=== PATIENT | female | born 1950 | race Caucasian/White ===

== ENCOUNTER 2020-04-11 02:41 | Emergency (ER) | payer MEDICARE, BC ==
[~2020-04-11] VITALS: Ht 157.5 cm; Wt 56.7 kg
[2020-04-11 05:24] LABS: Basophils # (auto) 0 10 ^3/uL (0-0.2); Basophils % (auto) 0.3 % (0.0-2.0); Eosinophils # (auto) 0.1 10 ^3/uL (0-0.8); Eosinophils % (auto) 0.9 % (0.0-7.0); Hematocrit 37.6 % (36.0-46.0); Hemoglobin 12.9 g/dL (12.2-16.2); Lymphocytes # (auto) 2.8 10 ^3/uL (0.4-5.4); Lymphocytes % (auto) 32.1 % (10.0-50.0); Mean Corpuscular Hemoglobin 31.6 pg (28.0-32.0); Mean Corpuscular Hgb Conc. 34.2 g/dL (32.0-36.0); Mean Corpuscular Volume 92.4 fL (80.0-100.0); Monocytes # (auto) 0.7 10 ^3/uL (0-1.3); Monocytes % (auto) 7.4 % (0.0-12.0); Neutrophils # (auto) 5.2 10 ^3/uL (1.6-8.6); Neutrophils % (auto) 59.3 % (37.0-80.0); Platelet Count (auto) 380 10^3/uL (140-450); Red Blood Cells 4.07 10^6/uL (4.0-5.20); White Blood Cell 8.8 10^3/uL (4.4-10.8)
[2020-04-11 05:31] LABS: INR 0.97 (0.9-1.15)
[2020-04-11 05:39] LABS: Albumin 3.7 g/dL (3.4-5.0); Anion Gap 10 (5-15); Blood Urea Nitrogen 17 mg/dL (7-18); Calcium 9.1 mg/dL (8.5-10.1); Carbon Dioxide 17 mmol/L (21-32); Chloride 113 mmol/L (98-107); Glucose 78 mg/dL (74-106); Potassium 3.6 mmol/L (3.5-5.1); Sodium 140 mmol/L (136-145)
[2020-04-11 05:47] LABS: Alanine Aminotransferase 16 U/L (13-56); Alkaline Phosphatase 71 U/L (45-117); Aspartate Aminotransferase 13 U/L (15-37); BUN/Creatinine Ratio 14.5; Bilirubin, Total 0.5 mg/dL (0.2-1.0); GFR African American 59 mL/min; GFR Non-African American 49 mL/min; Total Protein 7.7 g/dL (6.4-8.2)
[2020-04-11] MEDS ORDERED: LORazepam 2MG/ML-1ML VIAL IV ONE (06:00)
[2020-04-11 06:02] LABS: Urine Bacteria FEW /hpf (None Seen); Urine Blood Negative /uL (Negative); Urine Mucus FEW (None Seen); Urine Specific Gravity 1.012 (1.001-1.035); Urine WBC 72 /hpf (0 - 5)
[2020-04-11 07:07] VITALS: BP 138/58
[2020-04-11 09:13] LABS: Alcohol, Urine < 3.0 mg/dL (0-10); Amphetamine Screen, Urine NEGATIVE (NEGATIVE); Barbiturate Scree,Urine NEGATIVE (NEGATIVE); Benzodiazephine Screen, Urine NEGATIVE (NEGATIVE); Cannabinoid Screen, Urine POSITIVE (NEGATIVE); Cocaine Screen, Urine NEGATIVE (NEGATIVE); Opiate Scree,Urine NEGATIVE (NEGATIVE); Phencyclidine Screen, Urine NEGATIVE (NEGATIVE)
== END 2020-04-11 07:11 | disposition home or self-care (01) ==
LOC: ER 02:48
DX: F41.9 Anxiety disorder, unspecified (principal); Z88.2 Allergy status to sulfonamides
CPT/HCPCS: 36415; 71045; 80053; 80307; 81001; 83880; 84484; 85025; 85610; 85730; 93005; 96374; 99285; J2060

== ENCOUNTER 2020-06-15 14:23 | Inpatient (IN) | payer MEDICARE, BC ==
[~2020-06-15] VITALS: Ht 157.5 cm; Wt 60.0 kg
[2020-06-15] MEDS ORDERED: SODIUM CHLORIDE 0.9% 1,000 ML IVB ONE (15:00)
[2020-06-15 15:05] LABS: Basophils # (auto) 0 10 ^3/uL (0-0.2); Basophils % (auto) 0.3 % (0.0-2.0); Eosinophils # (auto) 0.1 10 ^3/uL (0-0.8); Hematocrit 38.2 % (36.0-46.0); Hemoglobin 13.4 g/dL (12.2-16.2); Lymphocytes % (auto) 36.5 % (10.0-50.0); Mean Corpuscular Hemoglobin 32.5 pg (28.0-32.0); Mean Corpuscular Hgb Conc. 35.1 g/dL (32.0-36.0); Mean Corpuscular Volume 92.8 fL (80.0-100.0); Monocytes # (auto) 0.7 10 ^3/uL (0-1.3); Neutrophils # (auto) 4.4 10 ^3/uL (1.6-8.6); Neutrophils % (auto) 54.2 % (37.0-80.0); Platelet Count (auto) 354 10^3/uL (140-450); Red Blood Cells 4.12 10^6/uL (4.0-5.20); Red Cell Distribution Width 14.2 % (11.8-14.3); White Blood Cell 8.1 10^3/uL (4.4-10.8)
[2020-06-15 15:23] LABS: Albumin 3.8 g/dL (3.4-5.0); Calcium 9.8 mg/dL (8.5-10.1); Magnesium 2.1 mg/dL (1.6-2.6); Potassium 3.3 mmol/L (3.5-5.1)
[2020-06-15 15:26] LABS: BUN/Creatinine Ratio 17.7; Bilirubin, Total 0.5 mg/dL (0.2-1.0); Total Protein 7.2 g/dL (6.4-8.2)
[2020-06-15 15:32] LABS: Partial Thromboplastin Time 25.1 sec (23.0-31.2)
[2020-06-15 18:10] LABS: Urine Bacteria NONE SEEN /hpf (None Seen); Urine Blood Negative /uL (Negative); Urine Mucus FEW (None Seen); Urine Specific Gravity 1.021 (1.001-1.035); Urine WBC 31 /hpf (0 - 5)
[2020-06-15] MEDS ORDERED: POTASSIUM CHL 20 Meq TABLET PO ONE (18:45)
[2020-06-15] MEDS ORDERED: cefTRIAXone 1GM/50ML D5W 50 ML IV ONE (18:45)
[2020-06-15] MEDS ORDERED: POTASSIUM EFFERVESENT TAB 25 MEQ PO ONE (20:00)
[2020-06-15] MEDS ORDERED: MORPHINE SULF INJ 2 MG/ML SYRINGE 1ML IV PRN ×2 (20:00)
[2020-06-15] MEDS ORDERED: NITROGLYCERIN 0.4 MG SL TAB SL PRN (20:00)
[2020-06-15] MEDS ORDERED: ONDANSETRON HCL 4 MG/2 ML VIAL IV PRN (20:00)
[2020-06-15] MEDS ORDERED: HYDROcodone-ACET 5/325MG TAB PO PRN (20:00)
[2020-06-15] MEDS ORDERED: ACETAMINOPHEN 500 MG TAB PO PRN (20:00)
[2020-06-15] MEDS: SODIUM CHLORIDE 0.9% 1,000 ML IV SCH (20:56)
[2020-06-15 23:30] VITALS: BP 130/70
[2020-06-16] MEDS: SODIUM CHLORIDE 0.9% 1,000 ML IV SCH ×2 (01:45→22:40)
[2020-06-16] MEDS ORDERED: RISP0.5T17 PO (01:59)
[2020-06-16] MEDS ORDERED: MULTTAB99 GT (02:00)
[2020-06-16] MEDS ORDERED: FLUO60TA7 PO (02:01)
[2020-06-16 05:00] VITALS: BP 145/79
[2020-06-16 08:15] VITALS: BP 129/77
[2020-06-16] MEDS: cefTRIAXone 1GM/50ML D5W 50 ML IV SCH (08:41)
[2020-06-16 09:00] VITALS: BP 129/77
[2020-06-16] MEDS: FLUoxetine HCL 20 MG CAP PO SCH (10:00)
[2020-06-16 12:59] VITALS: BP 133/67
[2020-06-16] MEDS: ALPRAZolam 0.25 MG TAB PO PRN (14:14)
[2020-06-16 17:00] VITALS: BP 138/79
[2020-06-16 22:00] VITALS: BP 102/66
[2020-06-17 05:00] VITALS: BP 123/71
[2020-06-17 06:27] LABS: Calcium 8.8 mg/dL (8.5-10.1); Potassium 3.8 mmol/L (3.5-5.1)
[2020-06-17] MEDS: ALPRAZolam 0.25 MG TAB PO PRN (08:43)
[2020-06-17] MEDS: cefTRIAXone 1GM/50ML D5W 50 ML IV SCH (08:43)
[2020-06-17 09:00] VITALS: BP 118/76
[2020-06-17] MEDS: FLUoxetine HCL 20 MG CAP PO SCH (09:53)
[2020-06-17] MEDS: SODIUM CHLORIDE 0.9% 1,000 ML IV SCH (12:00)
[2020-06-17 13:00] VITALS: BP 140/74
[2020-06-17 17:00] VITALS: BP 144/93
[2020-06-17 22:20] VITALS: BP 130/81
[2020-06-18] MEDS: SODIUM CHLORIDE 0.9% 1,000 ML IV SCH (01:23)
[2020-06-18 05:06] VITALS: BP 135/76
[2020-06-18 08:34] VITALS: BP 134/78
[2020-06-18] MEDS: cefTRIAXone 1GM/50ML D5W 50 ML IV SCH (09:35)
[2020-06-18] MEDS: FLUoxetine HCL 20 MG CAP PO SCH (09:36)
[2020-06-18] MEDS ORDERED: AMOX500T86 PO (10:24)
[2020-06-18] MEDS: ALPRAZolam 0.25 MG TAB PO PRN (10:48)
[2020-06-18 13:00] VITALS: BP 127/92
== END 2020-06-18 14:30 | disposition home or self-care (01) | DRG 689 ==
LOC: ER 14:23 → TELE 19:49 → TELE-WESTW 23:14
PROVIDERS: ADMIT Nurse Practitioner Acute Care; ATTEND Internal Medicine
DX: N30.00 Acute cystitis without hematuria (principal); N17.0 Acute kidney failure with tubular necrosis; R55 Syncope and collapse; I95.89 Other hypotension; E87.6 Hypokalemia; F41.9 Anxiety disorder, unspecified; F32.9 Major depressive disorder, single episode, unspecified; E86.0 Dehydration; F41.1 Generalized anxiety disorder; Z20.822 Contact with and (suspected) exposure to COVID-19; Z85.3 Personal history of malignant neoplasm of breast; Z90.710 Acquired absence of both cervix and uterus; N18.31 Chronic kidney disease, stage 3a
CPT/HCPCS: 36415; 70450; 71045; 80048; 80053; 81001; 83735; 85025; 85610; 85730; 87086; 87426; 93005; 96361; 96365; G0378; J0696

== ENCOUNTER 2022-01-31 23:34 | Emergency (ER) | payer MEDICARE, BC ==
[~2022-01-31] VITALS: Ht 157.5 cm; Wt 60.0 kg
[~2022-01-31 23:34] MED LIST: AMOX500T86 PO; FLUO60TA7 PO; MULTTAB99 GT; RISP0.5T17 PO
[2022-02-01 00:27] LABS: Basophils # (auto) 0 10 ^3/uL (0-0.2); Basophils % (auto) 0.4 % (0.0-2.0); Eosinophils # (auto) 0.1 10 ^3/uL (0-0.8); Eosinophils % (auto) 1.2 % (0.0-7.0); Hematocrit 39.3 % (36.0-46.0); Hemoglobin 13.1 g/dL (12.2-16.2); Lymphocytes # (auto) 2.5 10 ^3/uL (0.4-5.4); Lymphocytes % (auto) 30.1 % (10.0-50.0); Mean Corpuscular Hemoglobin 32.2 pg (28.0-32.0); Mean Corpuscular Hgb Conc. 33.4 g/dL (32.0-36.0); Mean Corpuscular Volume 96.3 fL (80.0-100.0); Monocytes # (auto) 0.7 10 ^3/uL (0-1.3); Monocytes % (auto) 8.2 % (0.0-12.0); Neutrophils % (auto) 60.1 % (37.0-80.0); Red Blood Cells 4.08 10^6/uL (4.0-5.20); Red Cell Distribution Width 13.2 % (11.8-14.3); White Blood Cell 8.4 10^3/uL (4.4-10.8)
[2022-02-01 00:40] LABS: Albumin 3.8 g/dL (3.4-5.0); BUN/Creatinine Ratio 14.6; Calcium 9.2 mg/dL (8.5-10.1); INR 0.97 (0.9-1.15); Partial Thromboplastin Time 28.5 sec (24.6-33.4); Potassium 4.2 mmol/L (3.5-5.1)
[2022-02-01 00:43] LABS: Bilirubin, Total 0.4 mg/dL (0.2-1.0); Total Protein 6.9 g/dL (6.4-8.2)
[2022-02-01 06:07] VITALS: BP 128/55
== END 2022-02-01 06:40 | disposition home or self-care (01) ==
LOC: ER 23:34 → EDBD 23:34 → ER 02-01 06:32
DX: S01.01XA Laceration without foreign body of scalp, initial encounter (principal); R94.31 Abnormal electrocardiogram [ECG] [EKG]; R06.02 Shortness of breath; Z88.2 Allergy status to sulfonamides; Z88.1 Allergy status to other antibiotic agents; Z90.710 Acquired absence of both cervix and uterus; W18.11XA Fall from or off toilet without subsequent striking against object, initial encounter; Y93.89 Activity, other specified; Y92.091 Bathroom in other non-institutional residence as the place of occurrence of the external cause; Y99.8 Other external cause status
CPT/HCPCS: 12001; 36415; 70450; 72125; 80053; 83880; 84484; 85025; 85610; 85730; 93005